=== PATIENT | female | born 1965 | race Caucasian/White ===

== ENCOUNTER 2017-12-14 21:51 | Emergency (ER) | payer BC | END 2017-12-14 22:01 | disposition left against medical advice (07) | LOC: ERS 21:51 | DX: Z53.21 Procedure and treatment not carried out due to patient leaving prior to being seen by health care provider (principal) ==

== ENCOUNTER 2017-12-15 01:48 | Inpatient (IN) | payer BC ==
[2017-12-15 02:56] LABS: #Eosinphils 0.1 thou/uL (0.0-0.7); #Lymphocytes 1.6 thou/uL (1.20-3.40); #Monocytes 0.4 thou/uL (0.11-0.59); #Neutrophils 7.8 thou/uL (1.40-6.50); %Basophils 0.5 % (0.0-1.0); %Eosinophils 1.2 % (0.0-10.0); %Lymphocytes 15.7 % (21.0-51.0); %Neutrophils 78.6 % (42.0-75.0); Hemoglobin 11.2 g/dL (12.0-16.0); Mean Corpuscular Hemoglobin 32.4 pg (27.0-31.0); Mean Corpuscular Volume 92.6 fL (78.0-98.0); Mean Platelet Volume 6.6 fL (7.4-10.4); Platelet Count 317 thou/uL (130-400); RBC Distribution Width 11.6 % (11.5-14.5); Red Blood Cell (RBC) Count 3.45 mill/uL (4.20-5.40); White Blood Cell (WBC) Count 9.9 thou/uL (4.8-10.8)
[2017-12-15 03:16] LABS: ALT (SGPT) 12 U/L (8-55); AST (SGOT) 13 U/L (5-34); Albumin 4.6 g/dL (3.5-5.0); Alkaline Phosphatase 42 U/L (40-150); Anion Gap 11 mmol/L (10-20); BUN (Urea Nitrogen) 17 mg/dL (9.8-20.1); Bilirubin, Total 0.4 mg/dL (0.2-1.2); Calc. Creatinine Clearance 0 mL/min (70-130); Calcium 9.4 mg/dL (7.8-10.44); Carbon Dioxide 23 mmol/L (22-29); Chloride 107 mmol/L (98-107); Estimated GFR-MDRD 85; Globulin 2.6 g/dL (2.4-3.5); Glucose 95 mg/dL (70-105); Potassium 4.2 mmol/L (3.5-5.1); Protein, Total 7.2 g/dL (6.0-8.3); Sodium 137 mmol/L (136-145)
[2017-12-15] MEDS ORDERED: Promethazine 25 MG TAB ONE (03:22)
[2017-12-15] MEDS ORDERED: Promethazine HCl 25 MG/ML VIAL ONE ×2 (03:22→04:25)
--- NOTE | 2017-12-15 04:17 | PDOC.FPRHP ---
- History of Present Illness Chief Complaint: GI bleed History of Present Illness: This is a 52 yo female with a PMH of hypothyroidism who presents to the ED with a 4 day history of progressively worsening GI bleeding. She states that 3 weeks ago she was having right sided abdominal pain and so she presented to [facility] ER and received a CT scan and was told she had an ovarian mass. She then scheduled a colonoscopy and had that done 2 weeks ago. They found and removed 3 colon polyps. 3 days ago she stated that she had a bowel movement and found blood on the toilet paper. 2 days ago she states that she had increased blood with bowel movements. Yesterday and this morning she began passing multiple golf ball sized clots. She states they were dark and sticky but not black. She also stated she had some severe nausea at that time but denies vomiting. - Allergies/Adverse Reactions Allergies Allergy/AdvReac Type Severity Reaction Status Date / Time meperidine [From Demerol] Allergy Verified 12/15/17 04:38 - Home Medications Medication Instructions Recorded Confirmed Type Levothyroxine Sodium [Synthroid] 100 mcg PO DAILY 12/15/17 12/15/17 History - History PMHx: Hypothyroidism, breast cancer PSHx: Double mastectomy, appendectomy, cholecystectomy, , vaginal hysterectomy FHx: noncontributory Social: no tobacco use, social alcohol use - Review of Systems General: reports: fever/chills, other (Pt. has cold intolerance in the ED). denies: weight/appetite/sleep changes Respiratory: denies: cough, congestion, shortness of breath Cardiovascular: denies: chest pain, palpitation, edema Gastrointestinal: reports: nausea. denies: vomiting Genitourinary: denies: incontinence, dysuria Skin: denies: rashes, lesions Musculoskeletal: denies: pain, tenderness Neurological: denies: numbness, syncope Psychological: denies: anxiety, depression - Vital signs BP: [100/68] HR: [101] RR: [20] Tmax: [98.7] Pox: [100]% on [RA] Wt: [63.50] - Physical Exam Constitutional: NAD, awake, alert and oriented HEENT: normocephalic and atraumatic, PERRLA, EOMI, grossly normal vision, grossly normal hearing, good dention -HEENT: Dry mucus membranes Neck: supple, FROM Chest: no-tender to palpation, no lesions Heart: RRR, normal S1/S2, no murmurs/rubs/gallops Lungs: CTAB, no respiratory distress, good air movement Abdomen: soft, bowel sounds present -Abdomen: tenderness to deep palpation, negative rebound tenderness Musculoskeletal: normal structure Neurological: no focal deficit, CN II-XII intact Skin: no rash/lesions Heme/Lymphatic: no unusual bruising or bleeding, no purpura Psychiatric: normal mood and affect, good judgment and insight, intact recent and remote memory FMR H&P: Results - Labs Result Diagrams: 12/15/17 12:07 12/15/17 02:40 Lab results: WBC 9.9 thou/uL (4.8-10.8) 12/15/17 02:40 Hgb 11.2 g/dL (12.0-16.0) L 12/15/17 02:40 Hct 32.0 % (36.0-47.0) L 12/15/17 02:40 MCV 92.6 fL (78.0-98.0) 12/15/17 02:40 Plt Count 317 thou/uL (130-400) 12/15/17 02:40 Neutrophils % 78.6 % (42.0-75.0) H 12/15/17 02:40 Sodium 137 mmol/L (136-145) 12/15/17 02:40 Potassium 4.2 mmol/L (3.5-5.1) 12/15/17 02:40 Chloride 107 mmol/L (98-107) 12/15/17 02:40 Carbon Dioxide 23 mmol/L (22-29) 12/15/17 02:40 BUN 17 mg/dL (9.8-20.1) 12/15/17 02:40 Creatinine 0.72 mg/dL (0.6-1.1) 12/15/17 02:40 Glucose 95 mg/dL (70-105) 12/15/17 02:40 Calcium 9.4 mg/dL (7.8-10.44) 12/15/17 02:40 Total Bilirubin 0.4 mg/dL (0.2-1.2) 12/15/17 02:40 AST 13 U/L (5-34) 12/15/17 02:40 ALT 12 U/L (8-55) 12/15/17 02:40 Alkaline Phosphatase 42 U/L (40-150) 12/15/17 02:40 Serum Total Protein 7.2 g/dL (6.0-8.3) 12/15/17 02:40 Albumin 4.6 g/dL (3.5-5.0) 12/15/17 02:40 FMR H&P: A/P - Problem List (1) Lower GI bleed Current Visit: Yes Status: Acute Code(s): K92.2 - GASTROINTESTINAL HEMORRHAGE, UNSPECIFIED (2) Hypovolemic shock Current Visit: Yes Status: Acute Code(s): R57.1 - HYPOVOLEMIC SHOCK (3) Anemia due to blood loss Current Visit: Yes Status: Acute Code(s): D50.0 - IRON DEFICIENCY ANEMIA SECONDARY TO BLOOD LOSS (CHRONIC) (4) Hypothyroidism Current Visit: Yes Status: Acute Code(s): E03.9 - HYPOTHYROIDISM, UNSPECIFIED - Plan Lower GI bleed -Admit to medicine -CBC in AM -Fluid resuscitation LR 125 mL/hr -GI has been consulted -Colonoscopy later today Hypovolemic Shock -Fluid resuscitation -Monitor vitals for signs of shock Anemia due to blood loss -Fluid resuscitation -Type and crossed in ER Hypothyroidism -Continue home meds -TSH FMR H&P: Upper Level - Pertinent history 52 yo WF PMH hypothyroidism. Presents with 4 day hx BRBPR that has gradually worsened. Reports passing clots. Reported lightheadedness and dizziness upon standing. No LOC or fainting. Had screening colonoscopy 2 weeks ago and is s/p polypectomy x3. Path showed hyperplastic polyps. ER: Phenergan, NS 1L, GI consult, labs, type and screen - Pertinent findings Vitals: BP 100/68, pulse 101 GEN: NAD CV: mild tachy, regular Lung: CTA-B Abdomen: mild diffuse TTP, nondistended, BS x4 Labs: H&H 11.2/32.0 - Plan Date/Time: 12/15/17 0415 I, Deandre Armstrong MD, have evaluated this patient and agree with findings/plan as outlined by investigator internal affairs resident. Pertinent changes/additions are listed here. 1. Acute Lower GI Bleed: vitals signs initially showed early signs of hypovolemic shock with hypotension and tachycardia. Patient responded to fluid bolus. GI consulted in ER and plans for colonoscopy later today. Will monitor vitals closely. Repeat H&H later this afternoon. Suspect bleeding from polypectomy sites vs diverticular bleed vs AV malformation. No need to transfuse at this time. 2. Mild hypovolemic shock 2/ #1: continue IV LR at 125mL/hr. Improved with bolus. 3. Hypothyroidism: continue synthroid 4. Diet: NPO 5. PPx: SCDs 6. CODE: Full Dispo: Inpatient given signs of hypovolemic shock on initial presentation. Placed on medical floor. Likely stay >2 midnights. Attending Addendum - Attending Addendum Date/Time: 12/15/172207 I personally evaluated the patient and discussed the management with Dr. Gonsalves I agree with the History, Examination, Assessment and Plan documented above with any addition or exceptions noted below- Briefly this is a 52 yo female with colohistory of colonoscopy 2 weeks ago. They found and removed 3 colon polyps as well as diverticulosis. 3 days ago she stated that she had a bowel movement and found blood on the toilet paper. 2 days ago she states that she had increased blood with bowel movements. Yesterday and this morning she began passing multiple golf ball sized clots. She states they were dark and sticky but not black. She also stated she had some severe nausea at that time but denies vomiting. PMH/PSH/All?meds reviewed and agree with resident's documentation. Afebrile VSS. A/P: Lower GI bleed- H/H stable; continue to monitor. GI consulted and planning on colonoscopy in the morning.
[2017-12-15 05:57] LABS: #Eosinphils 0.1 thou/uL (0.0-0.7); #Lymphocytes 1.2 thou/uL (1.20-3.40); #Monocytes 0.3 thou/uL (0.11-0.59); #Neutrophils 6.9 thou/uL (1.40-6.50); %Basophils 0.5 % (0.0-1.0); %Eosinophils 0.7 % (0.0-10.0); %Lymphocytes 14.4 % (21.0-51.0); %Monocytes 3.8 % (0.0-10.0); %Neutrophils 80.6 % (42.0-75.0); Mean Corpuscular HGB CONC 34.6 g/dL (32.0-36.0); Mean Corpuscular Hemoglobin 31.9 pg (27.0-31.0); Mean Corpuscular Volume 92.2 fL (78.0-98.0); Mean Platelet Volume 6.5 fL (7.4-10.4); Platelet Count 289 thou/uL (130-400); RBC Distribution Width 11.6 % (11.5-14.5); Red Blood Cell (RBC) Count 3.15 mill/uL (4.20-5.40); White Blood Cell (WBC) Count 8.5 thou/uL (4.8-10.8)
[2017-12-15] MEDS ORDERED: Ondansetron ODT 8 MG TAB SL PRN (06:09)
[2017-12-15] MEDS ORDERED: Acetaminophen 325 MG TAB PO PRN (06:09)
[2017-12-15] MEDS ORDERED: Ondansetron HCl/PF 4 MG/2 ML Vial IVP PRN (06:09)
[2017-12-15] MEDS ORDERED: Levothyroxine Sodium 100 MCG TAB PO SCH (06:30)
[2017-12-15] MEDS: Pantoprazole 40 MG VIAL IVP SCH (08:06)
[2017-12-15] MEDS: Lactated Ringer's 1,000 ML IV SCH ×3 (08:07→23:58)
--- NOTE | 2017-12-15 12:08 | CON ---
DATE OF CONSULTATION: 12/15/2017 REASON FOR CONSULTATION: Hematochezia. CONSULTING PHYSICIAN: Holley Schultz M.D. HISTORY OF PRESENT ILLNESS: The patient is a 52-year-old female with past medical history of hypothy roidism, breast cancer, recent diagnosis of an ovarian mass and colon polyps, presenting with complai nts of hematochezia. She states that approximately 6 weeks ago, she was having increased right-sided abdominal pain and ultimately went to an urgent care center where she had a CT scan showing a possib le ovarian mass. As a part of workup related to this, she underwent a colonoscopy approximately 2 we eks ago with the finding of 3 polyps, one in the transverse, 1 in the ascending and 1 in the cecum me asuring approximately 4-7 mm in size. All three of these polyps were removed with snare cautery poly pectomy and she was ultimately discharged to home. She was in her usual state of health until approx imately 3 days ago when she started having hematochezia in the form of bright red blood per rectum th at was present only on the toilet paper, not in the toilet; however, over the next 1-2 days, it progr essively worsened having increasing amounts of bright red blood per rectum as well as darker colored clots that ultimately culminated yesterday into large dark, almost black golf ball sized blood clots in her stool. She denies having any bowel movements consisting solely of blood, but she also endorse s symptoms of increased pressure within the rectal area and in the midepigastric region. She also en dorses cramping abdominal pain into the entire abdomen that is intermittent and would reach a severit y approximately 3-4/10. She also endorses increased lightheaded and dizziness with diaphoretic episo de last night while having these bowel movements, but she did not lose consciousness. Currently, den ies any nausea, vomiting, fevers, chills, hematemesis, melena, weight loss or constipation. REVIEW OF SYSTEMS: A 10-category review of systems was obtained with all responses negative except f or the pertinent positives as listed in the HPI. PAST MEDICAL HISTORY: As per HPI. PAST SURGICAL HISTORY: Double mastectomy, appendectomy, cholecystectomy, vaginal hysterectomy and C- section x1. FAMILY HISTORY: Denies any GI malignancies. SOCIAL HISTORY: Denies any tobacco or illicit drug use. Does drink approximately 1-2 drinks every 3 -4 days. OUTPATIENT MEDICATIONS: Reviewed. ALLERGIES: MEPERIDINE. PHYSICAL EXAMINATION: VITAL SIGNS: Temperature 98.4, pulse 82, blood pressure 102/66, respiratory rate 18, satting 100% on room air. GENERAL: Patient is lying in bed in no acute distress. Alert and oriented x4. NECK: Supple. No JVD noted. CARDIOVASCULAR: Regular rate and rhythm with no discernible murmurs, gallops or rubs. RESPIRATORY: Clear to auscultation bilaterally with no discernible wheezes or rales. ABDOMEN: Normoactive bowel sounds, soft and nondistended. Tenderness to palpation in all abdominal quadrants, but most especially within the mid epigastric and right lower quadrant. EXTREMITIES: No cyanosis, clubbing or edema. LABORATORY DATA: CBC with a white blood cell count of 8.5, hemoglobin 10, hematocrit 29 and platelet s 289. Chemistry with sodium of 137, potassium 4.2, chloride 107, CO2 23, BUN 17, creatinine 0.72, g lucose 95, AST 13, ALT 12, alkaline phosphatase 42, total bilirubin 0.4, albumin 4.6. IMAGING DATA: Colonoscopy performed on 12/02/2017 showed 3 polyps in the transverse, ascending colon and cecum measuring 4-7 mm in size. These were all completely removed with snare cautery polypectom y, also noted was pancolonic diverticulosis. ASSESSMENT AND PLAN: The patient is a 52-year-old female with past medical history of hypothyroidism , breast cancer, recent diagnosis of an ovarian mass and colonic polyps (hyperplastic polyps) present ing with hematochezia. Hematochezia: The patient is presenting with a recent history of right-sided abdominal pain that req uired CT abdomen and pelvis with findings of an ovarian mass. As part of workup related to this, she underwent a screening colonoscopy approximately 2 weeks ago with the findings of 3 hyperplastic poly ps removed from the transverse colon, ascending colon and cecum. Also noted during this recent colon oscopy was pancolonic diverticulosis. However, over the last 2-3 days, she has been having increasin g amounts of bright red blood per rectum as well as large dark colored blood clots concerning for a c olonic bleed. Given her recent colonoscopy and polyps removed at that time with snare cautery, the m ost likely source of her hematochezia would be a post-polypectomy bleed; however, differential could also include diverticular bleeding (especially with diverticulosis noted on most recent colonoscopy), Dieulafoy lesion, arteriovenous malformations, colitis (much less likely given recent colonoscopy), hemorrhoidal bleeding (less likely). RECOMMENDATIONS: 1. We would place the patient on clear liquid diet today in preparation for colonoscopy tomorrow. 2. Would administer GoLYTELY prep tonight in a split prep dosing fashion in preparation for colonosc opy tomorrow for evaluation of hematochezia. 3. We would continue to trend hemoglobin and hematocrit and transfuse as necessary to maintain hemog lobin and hematocrit of 7/21. 4. Continue to monitor clinically for signs of active gastrointestinal bleeding. 5. Continue PPI daily for now with lower likelihood of an upper GI bleed. We will continue to follow. Please call with any questions.
[2017-12-15 12:14] LABS: Hemoglobin 11.3 g/dL (12.0-16.0)
[2017-12-15] MEDS ORDERED: GoLYTELY 4,000 ml Bottle PO SCH (18:00)
[2017-12-16 04:59] LABS: Hemoglobin 9.1 g/dL (12.0-16.0)
[2017-12-16] MEDS: Levothyroxine Sodium 100 MCG TAB PO SCH (05:17)
[2017-12-16] MEDS: Lactated Ringer's 1,000 ML IV SCH ×3 (05:37→23:17)
--- NOTE | 2017-12-16 06:06 | PDOC.FM ---
- Subjective Subjective: 52 yo F admitted for mild hypovolemic shock 2/2 to lower GI bleed 2/2 to suspected polypectomy complications. Took Golytely yesterday, said she passed about 20 BM, her BM have become more bright red than dark maroon. Colonoscopy today. - Objective Vital Signs & Weight: Vital Signs (12 hours) Temp Pulse Resp BP Pulse Ox 12/15/17 21:33 75 16 115/77 100 12/15/17 20:00 98.1 F 75 16 100 Weight Weight 64.58 kg I&O: 12/14/17 12/15/17 12/16/17 06:59 06:59 06:59 Intake Total 1960 Output Total 1000 Balance 960 Result Diagrams: 12/16/17 04:11 12/15/17 02:40 <Micki Pedro - Last Filed: 12/16/17 08:42> - Objective Vital Signs & Weight: Vital Signs (12 hours) Temp Pulse Resp BP Pulse Ox 12/16/17 07:18 98.3 F 91 16 114/73 98 Weight Weight 64.58 kg I&O: 12/15/17 12/16/17 12/17/17 06:59 06:59 06:59 Intake Total 1960 Output Total 1000 Balance 960 Result Diagrams: 12/16/17 04:11 12/15/17 02:40 <Karina Brown - Last Filed: 12/16/17 11:15> Phys Exam - Physical Examination Constitutional: NAD Respiratory: no wheezing, no rales, no rhonchi, clear to auscultation bilateral Cardiovascular: RRR, no significant murmur Musculoskeletal: no edema, pulses present Neurological: moves all 4 limbs Psychiatric: normal affect, A&O x 3 Skin: cap refill <2 seconds <Micki Pedro - Last Filed: 12/16/17 08:42> Dx/Plan (1) Anemia due to blood loss Code(s): D50.0 - IRON DEFICIENCY ANEMIA SECONDARY TO BLOOD LOSS (CHRONIC) Status: Acute (2) Hypothyroidism Code(s): E03.9 - HYPOTHYROIDISM, UNSPECIFIED Status: Chronic (3) Hypovolemic shock Code(s): R57.1 - HYPOVOLEMIC SHOCK Status: Acute (4) Lower GI bleed Code(s): K92.2 - GASTROINTESTINAL HEMORRHAGE, UNSPECIFIED Status: Acute - Plan Plan: 1. Acute Lower GI Bleed: vitals signs initially showed early signs of hypovolemic shock with hypotension and tachycardia. Patient responded to fluid bolus. GI consulted in ER. Plans for colonoscopy. Will monitor vitals closely. Repeat H&H later this afternoon. Suspect bleeding from polypectomy sites vs diverticular bleed vs AV malformation. No need to transfuse at this time. -H/H (12/15) 29/10, 33.5/11.3 -H/H (12/16) showed worsening anemia: 26.6/9.1. Pt states she has passed about 20 bright red BM since yesterday. -Blood culture pending -Colonoscopy today, GI (Gigi) recs appreciated. -Continue to monitor. 2. Mild hypovolemic shock 07/01 #1: continue IV LR at 125mL/hr. 3. Hypothyroidism: continue synthroid 4. Diet: NPO 5. PPx: SCDs 6. CODE: Full Dispo: Inpatient given signs of hypovolemic shock on initial presentation. Placed on medical floor. Likely stay >2 midnights. F/up with PCP Kierra 1 wk after discharge. <Micki Pedro - Last Filed: 12/16/17 08:42> (1) Lower GI bleed Code(s): K92.2 - GASTROINTESTINAL HEMORRHAGE, UNSPECIFIED Status: Acute (2) Hypovolemic shock Code(s): R57.1 - HYPOVOLEMIC SHOCK Status: Acute (3) Anemia due to blood loss Code(s): D50.0 - IRON DEFICIENCY ANEMIA SECONDARY TO BLOOD LOSS (CHRONIC) Status: Acute (4) Hypothyroidism Code(s): E03.9 - HYPOTHYROIDISM, UNSPECIFIED Status: Chronic <Karina Brown - Last Filed: 12/16/17 11:15> Attending Addendum - Attending Addendum Date/Time: 12/16/17 1113 I personally evaluated the patient and discussed the management with Dr. Madelin Pedro. I agree with the History, Examination, Assessment and Plan documented above with any addition or exceptions noted below- Patient without multiple BM overnight but has been on bowel prep for colonoscopy. Afebrile VSS. A/P: 1) Lower GI bleed- mild decrease in H/H; continue to monitor. Plan for coloscopy today as per GI. Appreciate Gi assistance. 2) Hypothyroidism- continue home meds. <Karina Brown - Last Filed: 12/16/17 11:15>
[2017-12-16] MEDS: Pantoprazole 40 MG VIAL IVP SCH (08:10)
[2017-12-16 11:26] VITALS: BMI 26.0
--- NOTE | 2017-12-16 13:09 | OP ---
DATE OF PROCEDURE: 12/16/2017 PREOPERATIVE DIAGNOSIS: Lower GI bleed. DESCRIPTION OF PROCEDURE: After informed consent was obtained, the patient placed in the left latera l decubitus position. Anesthesia administered per the Anesthesia Department. Forward-viewing endosc ope was inserted in the rectum after perianal inspection and rectal exam were normal. It was passed into the cecum with ease. The cecum, ileocecal valve, and appendiceal orifice were normal. The prep was excellent. In the cecum, a small 3 mm ulcer was noted. No visible vessel or active bleeding wa s noted. In the ascending, a small 4 mm ulcer was noted with a clean white base, no active bleeding, no ulcer was seen in the transverse colon. There was no blood throughout the colon. The right colo n was visualized in the retroflexed position to again find a third ulcer and that was not successful. Diffuse diverticula were noted. ASSESSMENT: 1. Two small post-polypectomy ulcers without visible vessel or active bleeding. 2. Diffuse diverticulosis coli. 3. Otherwise, normal colonoscopy. RECOMMENDATIONS: 1. Resume diet. 2. Monitor hemoglobin and hematocrit. 3. Stable for discharge from gastrointestinal standpoint tomorrow if no recurrent bleeding.
[2017-12-17 04:51] LABS: #Eosinphils 0.2 thou/uL (0.0-0.7); #Lymphocytes 1.4 thou/uL (1.20-3.40); #Monocytes 0.4 thou/uL (0.11-0.59); #Neutrophils 3.6 thou/uL (1.40-6.50); %Basophils 0.5 % (0.0-1.0); %Eosinophils 3.7 % (0.0-10.0); %Lymphocytes 25.2 % (21.0-51.0); %Monocytes 7.5 % (0.0-10.0); %Neutrophils 63.2 % (42.0-75.0); Hemoglobin 8.7 g/dL (12.0-16.0); Mean Corpuscular HGB CONC 35.3 g/dL (32.0-36.0); Mean Corpuscular Hemoglobin 32.7 pg (27.0-31.0); Mean Corpuscular Volume 92.6 fL (78.0-98.0); Platelet Count 263 thou/uL (130-400); RBC Distribution Width 11.7 % (11.5-14.5); Red Blood Cell (RBC) Count 2.67 mill/uL (4.20-5.40); White Blood Cell (WBC) Count 5.7 thou/uL (4.8-10.8)
--- NOTE | 2017-12-17 06:06 | PDOC.FM ---
- Subjective Subjective: 52 yo F here for mild hypovolemic shock 2/2 to lower GI bleed. Stable overnight , eating and drinking well, voiding urine normally. No BM since prep and colonoscopy yesterday. Denies abdominal pain. Feeling fatigued but no other complaints this morning. No GI bleeding since yesterday. - Objective Vital Signs & Weight: Vital Signs (12 hours) Temp Pulse Resp BP Pulse Ox 12/16/17 22:47 98.2 F 93 18 100 12/16/17 20:00 98.2 F 93 18 117/78 100 Weight Admit Weight 64.58 kg Weight 64.58 kg I&O: 12/15/17 12/16/17 12/17/17 06:59 06:59 06:59 Intake Total 1960 Output Total 1000 Balance 960 Result Diagrams: 12/17/17 03:46 12/15/17 02:40 <Micki Pedro - Last Filed: 12/17/17 07:54> - Objective Vital Signs & Weight: Vital Signs (12 hours) Temp Pulse Resp BP Pulse Ox 12/17/17 08:00 98.5 F 83 18 98 12/17/17 07:49 98.5 F 83 18 107/72 97 Weight Admit Weight 64.58 kg Weight 64.58 kg I&O: 12/16/17 12/17/17 12/18/17 06:59 06:59 06:59 Intake Total 1960 Output Total 1000 Balance 960 Result Diagrams: 12/17/17 03:46 12/15/17 02:40 <Sarabjit Bach - Last Filed: 12/17/17 19:05> Phys Exam - Physical Examination Constitutional: NAD HEENT: moist MMs Respiratory: no wheezing, no rales, no rhonchi, clear to auscultation bilateral Cardiovascular: RRR, no significant murmur Gastrointestinal: soft, non-tender, no distention Musculoskeletal: no edema, pulses present Neurological: moves all 4 limbs Psychiatric: normal affect, A&O x 3 Skin: normal turgor, cap refill <2 seconds <Micki Pedro - Last Filed: 12/17/17 07:54> Dx/Plan (1) Anemia due to blood loss Code(s): D50.0 - IRON DEFICIENCY ANEMIA SECONDARY TO BLOOD LOSS (CHRONIC) Status: Acute (2) Hypothyroidism Code(s): E03.9 - HYPOTHYROIDISM, UNSPECIFIED Status: Chronic (3) Hypovolemic shock Code(s): R57.1 - HYPOVOLEMIC SHOCK Status: Acute (4) Lower GI bleed Code(s): K92.2 - GASTROINTESTINAL HEMORRHAGE, UNSPECIFIED Status: Acute - Plan Plan: Plan: 1. Acute Lower GI Bleed: vitals signs initially showed early signs of hypovolemic shock with hypotension and tachycardia. Patient responded to fluid bolus. GI consulted in ER. Plans for colonoscopy. Will monitor vitals closely. Suspect bleeding from polypectomy sites vs diverticular bleed vs AV malformation. No need to transfuse at this time. -H/H (12/15) 29/10, 33.5/11.3 -H/H (12/16) showed worsening anemia: 26.6/9.1. Pt states she has passed about 20 bright red BM since yesterday. -H/H (12/17) 24.7/8.7 -Blood cultures: NGTD -Colonoscopy today, GI (Gigi) recs appreciated. -Diffuse diverticuli noted -2 polypectomy sites visualized, no bleeding -Stable for discharge 12/17 if no continued bleeding -Hemoglobin dropped further today to 8.7. Dilutional vs continued bleeding. No bowel mvmts since before the colonoscopy. Pt feels well but fatigued. Eating and drinking well. 2. Mild hypovolemic shock 2/2 #1: IV removed. Eating and drinking well. 3. Hypothyroidism: continue synthroid 4. Diet: regular diet 5. PPx: SCDs 6. CODE: Full Dispo: Inpatient given signs of hypovolemic shock on initial presentation. Placed on medical floor. Likely stay >2 midnights. F/up with PCP Kierra 1 wk after discharge. <Micki Pedro - Last Filed: 12/17/17 07:54> Attending Addendum - Attending Addendum Date/Time: 12/17/17 193 I personally evaluated the patient and discussed the management with Dr. Madelin Pedro. I agree with the History, Examination, Assessment and Plan documented above with any addition or exceptions noted below. Mrs. Castillo feels well and states she is ready to go home. Still just a little lightheaded getting up but no hypotension or tachycardia. Good appetite, eating and taking po fluids well. Denies chest or abdominal pain or dyspnea. No BMs or blood in stool since colonoscopy. No active bleeding seen at endoscopy. Lungs: CTA, Cor: RRR. Abdomen: soft, non-tender, no organomegaly or masses. No edema. Hb 8.7. A: Lower GI bleeding resolved. Anemia secondary to blood loss. Hypothyroidism. Hx of Breast Cancer, Mild hypovolemic shock resolved. P: Discharge today. Oral Iron until rechecked normal by PCP, Dr. Lozada. She gets very constipated on oral iron but will try to take every other or 3d day until count built up and stay on top of it with stool softeners, high fiber, and laxatives as needed. OK to begin work on Tuesday at new job with [employer] as long as she feels well. [facility] <Sarabjit Bach - Last Filed: 12/17/17 19:05>
[2017-12-17] MEDS: Levothyroxine Sodium 100 MCG TAB PO SCH (06:31)
[2017-12-17] MEDS: Lactated Ringer's 1,000 ML IV SCH (06:33)
[2017-12-17 07:51] VITALS: BP 107/72; TEMP 98.5
--- NOTE | 2017-12-17 22:54 | DIS-2 ---
DATE OF ADMISSION: 12/15/2017 DATE OF DISCHARGE: 12/17/2017 RESIDENT: Micki Pedro M.D. ADMITTING ATTENDING: Jesus Grant M.D. DISCHARGE ATTENDING: Sarabjit Bach M.D. CONSULTATION: Dr. Isak Poe, GI. PROCEDURES: On 12/16/2017, colonoscopy done by Jay Cervantes. ASSESSMENT:1. Two small post-polypectomy ulcers without visible vessel or active bleeding. 2. Diffuse diverticulosis coli. 3. Otherwise normal colonoscopy. RECOMMENDATIONS: Resume diet. Monitor hemoglobin and hematocrit. Stable for discharge from gastrointestinal standpoint on 12/17/2017 if no recurrent bleeding. PRIMARY DIAGNOSES: 1. Acute lower gastrointestinal bleed. 2. Mild hypovolemic shock secondary to acute lower gastrointestinal bleed. SECONDARY DIAGNOSES: 1. Hypothyroidism. 2. Hx of breast cancer. DISCHARGE MEDICATIONS: 1. Acetaminophen 650 mg p.o. q.4 hours p.r.n. 2. Levothyroxine sodium 100 mcg p.o. scheduled once a day. 3. Iron supplement. DISCONTINUED MEDICATION: Phenergan. HISTORY OF PRESENT ILLNESS AND HOSPITAL COURSE: This is a 52-year-old female with a past medical history of hypothyroidism presented to the ED with a 4-day history of progressively worsening GI bleeding. She stated that 3 weeks ago, she was having right-sided abdominal pain, so she presented to the ED and received a CT scan and which showed an ovarian mass. As part of the work up for abdominal pain a colonoscopy was done 2 weeks ago: three colon polyps were removed at that time. Three days ago, she stated that she had a bowel movement and found blood in the toilet paper. Two days ago, she had increased blood with her bowel movements. Yesterday and this morning, she began passing multiple golf ball size clots. She stated they were dark, sticky, and maroon in color. She also stated she had some severe nausea, but denied any vomiting. Her vital signs initially showed initial signs of hypovolemic shock with hypotension and bradycardia. She responded well to a fluid bolus. GI was consulted and planned for colonoscopy. She was given GoLYTELY cocktail and she underwent a colonoscopy the next day. The scope showed diffuse diverticula. 2 polypectomy sites were visualized, but there was no bleeding. She had blood cultures done that showed no growth. Her hemoglobin decreased from 11.3 on to 8.7 on 12/17/2017. This was possibly dilutional change. She had no more bloody bowel movements after the colonoscopy. Upon discharge she was feeling better, and she was eating and drinking well. She denied any bleeding or abdominal pain upon discharge. DISPOSITION: Stable. DISCHARGE INSTRUCTIONS: 1. Location: Home. 2. Diet: Regular diet. 3. Activity: As tolerated. 4. Followup: With her PCP Kierra in 1 week. CASSANDRA
== END 2017-12-17 11:02 | disposition home or self-care (01) | DRG 377 ==
LOC: ERS 01:48 → T4-B 05:22
PROVIDERS: ADMIT Family Medicine; ATTEND Family Medicine
DX: K92.2 Gastrointestinal hemorrhage, unspecified (principal); R57.1 Hypovolemic shock; E03.9 Hypothyroidism, unspecified; R53.83 Other fatigue; D50.0 Iron deficiency anemia secondary to blood loss (chronic)
CPT/HCPCS: 36415; 80053; 82274; 85014; 85018; 85025; 86850; 86900; 86901; 87040; 96365; 96366; C9113; J2550; J7120

== ENCOUNTER 2018-03-31 08:48 | Outpatient (CLI) | payer BC ==
[2018-03-31 10:51] LABS: Hemoglobin 13.6 g/dL (12.0-16.0); Mean Corpuscular HGB CONC 32.3 g/dL (32.0-36.0); Mean Corpuscular Hemoglobin 29.8 pg (27.0-31.0); Mean Corpuscular Volume 92.3 fL (78.0-98.0); Mean Platelet Volume 7.3 fL (7.4-10.4); Platelet Count 373 thou/uL (130-400); RBC Distribution Width 11.8 % (11.5-14.5); Red Blood Cell (RBC) Count 4.55 mill/uL (4.20-5.40); White Blood Cell (WBC) Count 6.3 thou/uL (4.8-10.8)
== END 2018-03-31 08:49 | disposition home or self-care (01) ==
LOC: LABBT 08:48
PROVIDERS: ATTEND Obstetrics & Gynecology
DX: Z01.812 Encounter for preprocedural laboratory examination (principal); N83.201 Unspecified ovarian cyst, right side; Z85.3 Personal history of malignant neoplasm of breast
CPT/HCPCS: 85027; 86850; 86900; 86901

== ENCOUNTER 2018-04-03 08:12 | Day surgery (SDC) | payer BC ==
[2018-03-31 08:55] VITALS: BMI 25.6
[2018-04-03] MEDS ORDERED: Famotidine/PF 20 mg/2ml Vial ONE (08:37)
[2018-04-03] MEDS ORDERED: Gabapentin 300 MG CAP ONE (08:37)
[2018-04-03] MEDS ORDERED: CeleCOXIB 100 MG CAP ONE (08:38)
[2018-04-03 09:27] LABS: Anion Gap 14 mmol/L (10-20); BUN (Urea Nitrogen) 14 mg/dL (9.8-20.1); Calc. Creatinine Clearance 86 mL/min (70-130); Calcium 9.8 mg/dL (7.8-10.44); Carbon Dioxide 23 mmol/L (22-29); Chloride 105 mmol/L (98-107); Estimated GFR-MDRD 78; Glucose 85 mg/dL (70-105); Potassium 4.3 mmol/L (3.5-5.1); Sodium 138 mmol/L (136-145)
[2018-04-03] MEDS ORDERED: Midazolam HCl 2 mg/2 ml Vial ONE (10:50)
[2018-04-03] MEDS ORDERED: Fentanyl 100 MCG/2 ML VIAL ONE (10:54)
[2018-04-03] MEDS ORDERED: Dexmedetomidine 200 MCG/2 ML VIAL ONE (10:54)
[2018-04-03] MEDS ORDERED: Bupivacaine HCl 0.5%/Epinephrine 1:200,000/PF 30 ml Vial ONE (11:02)
[2018-04-03] MEDS ORDERED: SUGAMMADEX SODIUM 200 MG/2 ML VIAL ONE (12:40)
[2018-04-03] MEDS ORDERED: Morphine 4 MG/ML VIAL ONE (13:17)
--- NOTE | 2018-04-03 13:20 | OP ---
PREOPERATIVE DIAGNOSES: 1. Right ovarian mass with some solid and cystic component. 2. History of breast cancer. 3. Pelvic pain. POSTOPERATIVE DIAGNOSES: 1. Right ovarian mass with some solid and cystic component. 2. History of breast cancer. 3. Pelvic pain. PROCEDURE: Laparoscopic right oophorectomy with distal salpingectomy of remaining fallopian tube. SURGEON: Prema Herron D.O. GIN INSPECTOR: Katy Bhatti M.D. COMPLICATIONS: None. ESTIMATED BLOOD LOSS: 20 mL IV FLUIDS: 2000 mL URINARY OUTPUT: 50 mL FINDINGS: Absent uterus and left ovary, normal appearing vaginal cuff, approximately 3 cm right ovarian mass was benign appearance with several small cysts on the right ovary, benign appearing distal fallopian tube attached to the right ovary, adhesions from the right ovary to the right pelvic sidewall and right ureteral peristalsis noted before and after the completion of the procedure. Hemostasis achieved. INDICATIONS FOR THE PROCEDURE: Ms. Maxime Castillo is a 52-year-old who presented to clinic after having a CT scan several months prior with a right ovarian mass that was primarily cystic with a small solid component. The patient did have a history of breast cancer. She underwent tumor markers which were negative and had previously had genetic evaluation, which was also negative. Patient was counseled on the findings and due to the persistent pelvic pain, laparoscopic oophorectomy was recommended. The patient's risk and the malignancy index was 80 as her CA-125 was only 9. Patient was counseled that it likely appeared benign; however, pelvic washings for cytology would be performed and plan for removal of intact ovary. PROCEDURE IN DETAIL: The patient was brought to the operating room. She was placed under general anesthesia. She was placed in dorsal lithotomy position using Riky stirrups. She was prepped and draped in a sterile fashion. An official timeout was performed. An umbilical incision was made and a Veress needle was inserted in the peritoneal cavity. The peritoneal cavity was insufflated, noting a normal pressure. A 5 mm port was placed at this site. The pelvis was evaluated, noting the findings above. A pelvic washing was performed and collected for cytology. The patient was placed in Trendelenburg position. Additional ports were placed using 5 mm ports on the right and left aspect of the abdomen. All were placed under direct visualization with local anesthesia. The midline umbilical port was extended using the scalpel and the GelPOINT system was inserted for later removal of the ovary. The right ovary and fallopian tube were elevated and the right ureter was identified transperitoneally. The peritoneum on the lateral aspect of the pelvis was elevated, transected and entered to allow for a retroperitoneal dissection on the right aspect to allow for the ureter to be released from the adnexa and also improved ureteral identification. This was performed by transecting the peritoneum in a cephalad direction parallel to the IP ligament and then also advanced caudad. The peritoneum was then pulled medially. The ureter was identified within the medial leaf. The window was created beneath the IP ligament and the IP ligament was coagulated multiple times and transected. The adhesions anteriorly were then dissected away from the pelvic side wall using meticulous dissection. The posterior aspect of the cyst was using sharp dissection using laparoscopic scissors as well as the LigaSure device to assure meticulous dissection along this aspect clear away from the ureter and this was performed in a circumferential fashion, keeping in mind the course of the ureter during the entire process until the right ovary and distal portion of the right fallopian tube were completely removed from the pelvic sidewall. The pelvis was irrigated and cleared of all clot and debris. The right ureter was evaluated and noted to be peristalsing. The right ovary and fallopian tube were then placed in a 5 mm EndoCatch bag and brought out through the GelPOINT device. The instruments were removed. The abdomen was deflated. The GelPOINT was removed. The ovary was removed within the bag. During the dissection of the ovary off of the pelvic sidewall, there was a small amount of leaking of fluid. However, as discussed, the appearance of the right ovary and fallopian tube did appear benign. The trocars were removed. The umbilical fascia was closed in a running fashion using 0 Vicryl. The skin incisions were closed using 4-0 Monocryl and Dermabond. The patient tolerated the procedure well. There were no complications. All counts were correct x2. She will be transferred to the PACU in hemostatically stable condition and discharged home today. CASSANDRA
[2018-04-03] MEDS ORDERED: Dexamethasone 20 MG/5 ML VIAL ONE (15:24)
[2018-04-03] MEDS ORDERED: Ondansetron PF 4 MG/2 ML Vial ONE (15:24)
[2018-04-03] MEDS ORDERED: PROPOFOL 200 MG/20 ML VIAL ONE (15:24)
[2018-04-03] MEDS ORDERED: Lidocaine 1% PF 5 ML VIAL ONE (15:24)
[2018-04-03] MEDS ORDERED: Glycopyrrolate 0.2 MG/ML 5 ML SYRINGE ONE (15:24)
== END 2018-04-03 15:21 | disposition home or self-care (01) ==
LOC: SDC 08:12
PROVIDERS: ATTEND Obstetrics & Gynecology
PROC: 0UB54ZZ Excision of Right Fallopian Tube, Percutaneous Endoscopic Approach (ICD-10-PCS; principal; 2018-04-03)
PROC: 0UB04ZZ Excision of Right Ovary, Percutaneous Endoscopic Approach (ICD-10-PCS; principal; 2018-04-03)
DX: N83.01 Follicular cyst of right ovary (principal); Z85.3 Personal history of malignant neoplasm of breast
CPT/HCPCS: 80048; 88112; 88305; 96374; J0670; J1100; J2001; J2250; J2270; J2405; J2704; J3010; Q9968; S0028